=== PATIENT | male | born 1945 | race Caucasian/White ===

== ENCOUNTER → 2017-06-25 | Outpatient (CLI) | payer MEDICARE, OTHER | LOC: KOH-I 09:30 | DX: C67.9 Malignant neoplasm of bladder, unspecified (principal); C79.51 Secondary malignant neoplasm of bone; R22.2 Localized swelling, mass and lump, trunk; D50.9 Iron deficiency anemia, unspecified; K90.9 Intestinal malabsorption, unspecified; L98.9 Disorder of the skin and subcutaneous tissue, unspecified; K76.89 Other specified diseases of liver; R59.0 Localized enlarged lymph nodes; Z95.1 Presence of aortocoronary bypass graft; Z85.118 Personal history of other malignant neoplasm of bronchus and lung; Z85.038 Personal history of other malignant neoplasm of large intestine | CPT/HCPCS: 71260; 74177; Q9962 ==